=== PATIENT | male | born 1980 | race Caucasian/White ===

== ENCOUNTER 2020-08-21 13:53 | Emergency (ER) | payer SELFPAY ==
[2020-08-21 13:59] VITALS: BP 151/92
== END 2020-08-21 14:51 | disposition left against medical advice (07) ==
LOC: ER 13:53
DX: Z53.21 Procedure and treatment not carried out due to patient leaving prior to being seen by health care provider (principal); R42 Dizziness and giddiness; R68.84 Jaw pain; W19.XXXA Unspecified fall, initial encounter

== ENCOUNTER 2020-08-22 07:23 | Emergency (ER) | payer OTHER ==
[2020-08-22 07:28] VITALS: BP 150/88
--- NOTE | 2020-08-22 09:02 | ER Document Report ---
ED Fall - General Chief Complaint: Jaw Pain Stated Complaint: FALL/JAW PAIN,DIZZINESS Time Seen by Provider: 08/22/20 08:51 Primary Care Provider: JAZMIN WHYTE [NO LOCAL MD] - Follow up as needed Notes: CHIEF COMPLAINT: Continued headaches after fall HPI: 40-year-old male presenting for continued headaches and dizziness with position change after a fall that was mechanical in nature 7 days ago. Patient was at work tripped coming off of a curb and struck the left posterior head on the ground. Believes he may have lost consciousness or been dazed for several minutes. He went to the emergency department at [facility], states he had a head CT, does not know the results but states he was discharged. States he also injured the left ankle. States he has follow-up with a specialist today for the ankle but has continued to have some intermittent headaches for which she has taken no medications occasional dizziness when he bends forward. Has not followed up with another physician in the last week for evaluation of those symptoms. States he also has left jaw pain with chewing and movement does not specifically know that he struck the jaw on the ground. ROS: See HPI - all other systems were reviewed and are otherwise negative Constitutional: no fever Eyes: no drainage, no blurred vision ENT: no runny nose, no sore throat Cardiovascular: no chest pain Resp: no SOB, no cough GI: no vomiting, no diarrhea, no abdominal pain : no dysuria Integumentary: no rash Allergy: no hives Musculoskeletal: Positive extremity pain Neurological: no numbness/tingling, no weakness, positive headache MEDICATIONS: I agree with the patient medications as charted by the RN. ALLERGIES: I agree with the allergies as charted by the RN. PAST MEDICAL HISTORY/PAST SURGICAL HISTORY: Reviewed and agree as charted by RN. SOCIAL HISTORY: Reviewed and agree as charted by RN. FAMILY HISTORY: No significant familial comorbid conditions directly related to patient complaint EXAM: Reviewed vital signs as charted by RN. CONSTITUTIONAL: Alert and oriented and responds appropriately to questions. Well-appearing; well-nourished HEAD: Normocephalic; atraumatic. There is no soft tissue swelling or bruising noted to the left posterior scalp no palpable deformity on exam. EYES: PERRL; Conjunctivae clear, sclerae non-icteric ENT: normal nose; no rhinorrhea; moist mucous membranes; pharynx without lesions noted, no uvula edema or deviation, no tonsillar hypertrophy, phonation normal. No trismus. No visible facial bruising or swelling. Mild tenderness on palpation of the left masseter muscle and upper mandible and condyle NECK: Supple without meningismus; non-tender; no cervical lymphadenopathy, no masses CARD: RRR; no murmurs, no clicks, no rubs, no gallops; symmetric distal pulses RESP: Normal chest excursion without splinting or tachypnea; breath sounds clear and equal bilaterally; no wheezes, no rhonchi, no rales, pulse oximetry ABD/GI: Normal bowel sounds; non-distended; soft, non-tender, no rebound, no guarding; no palpable organomegaly or masses. BACK: The back appears normal and is non-tender to palpation, there is no CVA tenderness EXT: Normal ROM in all joints; no cyanosis, no effusions, no edema. Patient is ambulatory SKIN: Normal color for age and race; warm; dry; good turgor; no acute lesions noted NEURO: Moves all extremities equally; Motor and sensory function intact PSYCH: The patient's mood and manner are appropriate. Grooming and personal hygiene are appropriate. MDM: 40-year-old male presenting for some intermittent headaches and dizziness after a mechanical fall where he struck his head. Likely mild concussive symptoms. Headaches are not constant. States he had a CT of the head at [facility]. Will attempt to obtain these reports. States he does not believe they imaged his jaw has had continued left jaw pain. If we are able to obtain CT in a reasonable amount of time and are able to visualize the condyles and jaw and there is no fracture do not believe he will need further imaging. If we are unable to obtain the images or report or they do not discuss his mandible will image today. - Related data Allergies/Adverse Reactions: No Known Allergies Allergy (Unverified 10/26/12 11:22) Past Medical History - Social History Smoking Status: Never Smoker Chew tobacco use (# tins/day): No Frequency of alcohol use: None Drug Abuse: None Family History: Reviewed & Not Pertinent - Immunizations Hx Diphtheria, Pertussis, Tetanus Vaccination: Yes Physical Exam - Vital signs Vitals: Temp Pulse Resp BP Pulse Ox 98.2 F 83 20 150/88 H 95 08/22/20 07:26 08/22/20 07:26 08/22/20 07:26 08/22/20 07:26 08/22/20 07:26 Course - Re-evaluation Re-evalutation: 08/22/20 10:10 CT imaging negative for acute findings. Will discharge home on anti-inflammator ies to follow-up through his Workmen's Compensation providers - Vital Signs Vital signs: Temp Pulse Resp BP Pulse Ox 98.2 F 83 20 150/88 H 95 08/22/20 07:26 08/22/20 07:26 08/22/20 07:26 08/22/20 07:26 08/22/20 07:26 Discharge - Discharge Clinical Impression: Jaw pain Fall Qualifiers: Encounter type: subsequent encounter Qualified Code(s): W19.XXXD - Unspecified fall, subsequent encounter Head injury due to trauma Qualifiers: Encounter type: subsequent encounter Qualified Code(s): S09.90XD - Unspecified injury of head, subsequent encounter Mild concussion Qualifiers: Encounter type: initial encounter Loss of consciousness presence/duration: with LOC of 30 min or less Qualified Code(s): S06.0X1A - Concussion with loss of consciousness of 30 minutes or less, initial encounter Condition: Stable Disposition: HOME, SELF-CARE Instructions: Concussion ([facility]) Additional Instructions: Follow-up closely through your Workmen's Compensation providers for further evaluation and treatment. Your CT imaging of your head and facial bones today did not reveal evidence of bleeding or broken bones. The jaw pain is likely muscular in nature. Take the Voltaren to treat the headaches and the jaw pain. If you continue to have symptoms such as dizziness or headaches you may have a mild concussion and this should be followed up through neurology. You will be referred through your Workmen's Compensation providers to this specialist please make sure to request it Prescriptions: Diclofenac Sodium [Voltaren 50 Mg Tablet.] 50 mg PO BID #20 tablet.
--- NOTE | 2020-08-22 09:52 | RADIOLOGY REPORT (SQ) ---
EXAM DESCRIPTION: CT HEAD WITHOUT IMAGES COMPLETED DATE/TIME: 08/22/2020 9:38 am REASON FOR STUDY: trauma COMPARISON: None. TECHNIQUE: Axial images acquired through the brain without intravenous contrast. Images reviewed wi th bone, brain and subdural windows. Additional sagittal and coronal reconstructions were generated. Images stored on PACS. All CT scanners at this facility use dose modulation, iterative reconstruction, and/or weight based d osing when appropriate to reduce radiation dose to as low as reasonably achievable (ALARA). [facility]: Dose Right [facility]: CareDose [facility]: Dose Right [facility]: Teradose 4D [facility]: [employer] RADIATION DOSE: CT Rad equipment meets quality standard of care and radiation dose reduction techniq ues were employed. CTDIvol: 53.2 mGy. DLP: 1070 mGy-cm. mGy. LIMITATIONS: None. FINDINGS: VENTRICLES: Normal size and contour. CEREBRUM: No masses. No hemorrhage. No midline shift. No evidence for acute infarction. Normal gra y/white matter differentiation. No areas of low density in the white matter. CEREBELLUM: No masses. No hemorrhage. No alteration of density. No evidence for acute infarction. EXTRAAXIAL SPACES: No fluid collections. No masses. ORBITS AND GLOBE: No intra- or extraconal masses. Normal contour of globe without masses. CALVARIUM: No fracture. PARANASAL SINUSES: No fluid or mucosal thickening. SOFT TISSUES: No mass or hematoma. OTHER: No other significant finding. IMPRESSION: NORMAL BRAIN CT WITHOUT CONTRAST. EVIDENCE OF ACUTE STROKE: NO. COMMENT: Quality ID # [id number]: Final reports with documentation of one or more dose reduction techniques (e.g., Automated exposure control, adjustment of the mA and/or kV according to patient size, use of iterative reconstruction technique) TECHNICAL DOCUMENTATION: JOB ID: [id number] 2010 [employer]- All Rights Reserved Reading location - IP/workstation name: [email or web address]
--- NOTE | 2020-08-22 09:55 | RADIOLOGY REPORT (SQ) ---
EXAM DESCRIPTION: CT FACIAL AREA WITHOUT IMAGES COMPLETED DATE/TIME: 08/22/2020 9:36 am REASON FOR STUDY: left jaw pain trauma COMPARISON: None. TECHNIQUE: Noncontrasted images through the facial bones and orbits windowed for bone and soft tissu e. Additional coronal and sagittal reconstructed images reviewed. All images stored on PACS. All CT scanners at this facility use dose modulation, iterative reconstruction, and/or weight based d osing when appropriate to reduce radiation dose to as low as reasonably achievable (ALARA). [facility]: Dose Right [facility]: CareDose [facility]: Dose Right [facility]: Teradose 4D [facility]: [employer] RADIATION DOSE: CT Rad equipment meets quality standard of care and radiation dose reduction techniq ues were employed. CTDIvol: 30.4 mGy. DLP: 665 mGy-cm. mGy. LIMITATIONS: None. FINDINGS: FACIAL BONES: No fracture or bone lesion. ORBITS: Intact. No fracture. Symmetric intact globes and retroorbital soft tissues. PARANASAL SINUSES: Clear. No significant mucosal thickening, mass or fluid. No nasal polyps. Maxill alba sinus outlets are patent. SOFT TISSUES: No mass or edema. INFERIOR BRAIN: Limited view. No acute findings. OTHER: No other significant finding. IMPRESSION: NO ACUTE FINDINGS. TECHNICAL DOCUMENTATION: JOB ID: [id number] Quality ID # [id number]: Final reports with documentation of one or more dose reduction techniques (e.g., Au tomated exposure control, adjustment of the mA and/or kV according to patient size, use of iterative reconstruction technique) 2010 [employer]- All Rights Reserved Reading location - IP/workstation name: [email or web address]
== END 2020-08-22 10:23 | disposition home or self-care (01) ==
LOC: ER 07:23
DX: S06.0X1A Concussion with loss of consciousness of 30 minutes or less, initial encounter (principal); S99.912A Unspecified injury of left ankle, initial encounter; R68.84 Jaw pain; R42 Dizziness and giddiness; W10.1XXA Fall (on)(from) sidewalk curb, initial encounter; Y99.0 Civilian activity done for income or pay
CPT/HCPCS: 70450; 70486; 99284